=== PATIENT | female | born 1965 | race Caucasian/White ===

== ENCOUNTER → 2017-02-26 | Outpatient (CLI) | payer BC ==
[~2017-02-26] MED LIST: ASPIRIN 81M81 MG/TA2 PO; ASTELIN NASAL S34 ML NAS; CARDI-OMEGA1000 MG PO; COZAAR100 MG PO; CYMBALTA 60MG60 MG PO; DITROPAN 5MG TAB5 MG PO; FLONASE NASAL S16 GM NS; FLOVENT 220MCG7.9 GM IH; GLUCOPHAGE500 MG/TAB PO; IMITREX100 MG PO; LASARTAN; LASIX 20MG TABL20 MG PO; MEVACOR 20M20 MG/TAB PO; MOBIC 7.5MG7.5 MG PO; PAMELOR 10MG10 MG PO; PREDNISONE10 MG PO; PROVENTIL0.09 MG/A1 IH; SINGULAIR 110 MG/TAB PO; TOPAMAX50 MG PO; VITAMIN D5000 IU PO
== END ==
LOC: MC.RAD 07:00
DX: Z12.31 Encounter for screening mammogram for malignant neoplasm of breast (principal)

== ENCOUNTER → 2019-02-03 | Outpatient (CLI) | payer BC | LOC: BHSO 08:35 | DX: Z01.818 Encounter for other preprocedural examination (principal); E66.01 Morbid (severe) obesity due to excess calories ==

== ENCOUNTER → 2021-02-07 | Outpatient (CLI) | payer BC | LOC: MC.RAD 10:38 | DX: Z12.31 Encounter for screening mammogram for malignant neoplasm of breast (principal) ==

== ENCOUNTER 2022-10-16 08:24 | Day surgery (SDC) | payer OTHER ==
[2022-10-16] VITALS (8 sets, daily range): BP systolic 106–131; BP diastolic 63–80; PULSE 64–79; TEMP 97.7
[~2022-10-16] VITALS: Ht 165.1 cm; Wt 109.1 kg
[~2022-10-16 08:24] MED LIST changes: +TOPAMAX 100MG100 M1 PO; -TOPAMAX50 MG PO; -VITAMIN D5000 IU PO; +VITAMIND3 5000 PO
[2022-10-16 09:34] LABS: HEMATOCRIT 39.2 % (37.0-47.0); HEMOGLOBIN 12.8 g/dl (12.5-16.0); MEAN CELL VOLUME 93 fl (80.0-100.0); MEAN CORPUSCULAR HEMOGLOBIN 31 pg (27-31); MEAN CORPUSCULAR HGB CONC 33 g/dl (33.0-37.0); MEAN PLATELET VOLUME 9.7 fl (7.4-10.4); PLATELET COUNT 327 K/mm3 (130-400); REDCELL DISTRIBUTION WIDTH-CV 13.9 % (11.5-14.5)
[2022-10-16] MEDS ORDERED: TESSALON PERLE200 MG PO (09:47)
[2022-10-16] MEDS ORDERED: TOPROL XL 25MG25 MG PO (09:47)
[2022-10-16] MEDS ORDERED: BUTALBITAL ACET1 CAP PO (09:48)
[2022-10-16 09:49] LABS: CALCIUM 9.5 mg/dL (8.4-10.2); CREATININE, serum 0.95 mg/dL (0.57-1.11)
[2022-10-16] MEDS ORDERED: CYANOCOBAL1000 MCG/M IM (09:49)
[2022-10-16] MEDS ORDERED: VOLTAREN 75 DR75 MG PO (09:49)
[2022-10-16] MEDS ORDERED: LOFIBRA134 MG PO (09:50)
[2022-10-16] MEDS ORDERED: LASIX 20MG TABL20 MG PO (09:50)
[2022-10-16] MEDS ORDERED: EFFEXOR-XR150 MG PO (09:51)
[2022-10-16] MEDS ORDERED: OZEMPIC1 MG/0.71 SQ (09:51)
[2022-10-16 09:55] LABS: PARTIAL THROMBOPLASTIN TIME 30.6 SECONDS (26.0-37.0)
--- NOTE | 2022-10-16 10:55 | NUR ---
SEE MERGE FOR ALL MEDICATION ADMINISTRATION TIMES/DOSAGES AND INTRA/POST PROCEDURE SEDATION ASSESSMENTS.
--- NOTE | 2022-10-16 14:14 | NUR ---
Pt is ready for departure. TR band was dc'd with no problem, site dressed with bandaid, folded 2x2 and coban. cms intact distal. I reviewed dc/rx and fu instructions with pt who verbalized understanding. Pt escorted to exit via wheelchair. Sister in law is with pt, and is giving her a ride home.
== END 2022-10-16 16:11 | disposition home or self-care (01) ==
LOC: COL.CAR 08:24
PROVIDERS: Internal Medicine Cardiovascular Disease
DX: I25.10 Atherosclerotic heart disease of native coronary artery without angina pectoris (principal); R07.89 Other chest pain; E78.2 Mixed hyperlipidemia; Z79.899 Other long term (current) drug therapy
CPT/HCPCS: J1644; J2250; J3010; Q9967